=== PATIENT | male | born 1975 | race African-American/Black ===

== ENCOUNTER 2017-06-25 00:53 | Emergency (ER) | payer BC ==
[2017-06-25] MEDS ORDERED: ONDANSETRON 4 MG (ODT) TAB ONE (01:49)
[2017-06-25 03:17] LABS: Absolute Lymphocytes (CBC) 3.6 K/uL (0.7-4.9); Absolute Monocytes 0.9 K/uL (0.1-1.3); Absolute Neutrophil 5.5 K/uL (1.8-8.0); Basophils % 0.4 % (0-1.3); Eosinophils % 9.2 % (0-4.4); Hematocrit 38.9 % (39.6-49.0); Lymphocytes % 32.5 % (15.3-44.8); MCH 29.2 pg (27.0-35.0); MPV 8.2 fL (7.6-11.3); RBC Red Blood Cell Count 4.47 M/uL (4.33-5.43)
[2017-06-25] MEDS ORDERED: MAGNE/ALUM HYDROXD 30 ML UCUP ONE (03:17)
[2017-06-25] MEDS ORDERED: HYDROCODONE/APAP 7.5/325 MG TAB ONE (03:18)
[2017-06-25] MEDS ORDERED: FAMOTIDINE 20 MG TAB ONE (03:18)
[2017-06-25] MEDS ORDERED: LIDOCAINE VISCOUS 2% SOLN 15 ML UDC ONE (03:18)
[2017-06-25 03:20] LABS: Bicarbonate 30 mEq/L (21-31); Glucose Level 86 mg/dL (65-120); Lipase 16 U/L (22-51); Potassium 3.3 mEq/L (3.6-5.0); Sodium Level 135 mEq/L (135-145)
[2017-06-25] MEDS ORDERED: FAMOTIDINE 20 MG/2 ML VIAL IV ONE (03:21)
[2017-06-25 03:26] LABS: ALT/SGPT 25 IU/L (10-60); AST/SGOT 21 IU/L (10-42); Albumin 3.9 g/dL (3.2-5.5); Alkaline Phosphatase 85 IU/L (42-121); Amylase Level 79 U/L (28-100); BUN Blood Urea Nitrogen 13 mg/dL (6-20); Bilirubin Direct 0.1 mg/dL (0-0.2); Bilirubin Total 0.8 mg/dL (0.3-1.2); Glomerular Filtration Rate > 90 mL/min (=/>90); Protein, Total 7.4 g/dL (6.0-8.3)
--- NOTE | 2017-06-25 03:59 | ER ---
Nurse's Notes [facility] Name: Terry Santoyo Age: 42 yrs Sex: Male : 1975 Arrival Date: 06/25/2017 Time: 00:57 Bed 18 Private MD: Diagnosis: Calculus of gallbladder and bile duct without cholecystitis Presentation: 06/25 01:20 Presenting complaint: Patient states: I BEEN HAVING THESE PAINS IN MY STOMACH SINCE I bp ATE THESE BURRITOS THE OTHER DAY AND IT'S WORSE WHEN I EAT SOMETHING. Transition of care: patient was not received from another setting of care. Onset of symptoms is unknown. Care prior to arrival: None. 01:20 Method Of Arrival: Ambulatory bp 01:20 Acuity: ASH 3 bp Triage Assessment: 01:22 General: Appears in no apparent distress. comfortable, Behavior is calm, cooperative, bp appropriate for age. Pain: Complains of pain in abdomen. EENT: No deficits noted. Neuro: Level of Consciousness is awake, alert, obeys commands, Oriented to person, place, time, situation, Appropriate for age. Cardiovascular: No deficits noted. Respiratory: Airway is patent Respiratory effort is even, unlabored, Respiratory pattern is regular, symmetrical. GI: Abdomen is non-distended, Abd is soft X 4 quads. : No deficits noted. Derm: No deficits noted. Musculoskeletal: Circulation, motion, and sensation intact. Range of motion: intact in all extremities. 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 - Social history:: Smoking status: Patient/guardian denies using tobacco. Screenin:24 Abuse screen: Denies threats or abuse. Denies injuries from another. Nutritional bp screening: No deficits noted. Tuberculosis screening: No symptoms or risk factors identified. Fall Risk None identified. Assessment: 01:24 Reassessment: SEE TRIAGE NOTE. GI: Bowel sounds present X 4 quads. bp 02:26 Reassessment: patient with eyes closed breathing regular, family at bedside. No new cr4 complaints or concerns expressed. 03:11 Reassessment: No changes from previously documented assessment. Patient and/or family cr4 updated on plan of care and expected duration. Pain level reassessed. Patient is alert, oriented x 3, equal unlabored respirations, skin warm/dry/pink. Vital Signs: 01:22 BP 124 / 89; Pulse 60; Resp 16; Temp 98.1; Pulse Ox 98% on R/A; Weight 104.33 kg; bp Height 6 ft. 1 in. (185.42 cm); 02:01 BP 125 / 89; Pulse 53; Resp 18; Pulse Ox 95% on R/A; tl2 03:17 BP 134 / 96; Pulse 56; Resp 18; Pulse Ox 99% ; Pain 6/10; cr4 04:12 BP 130 / 91; Pulse 66; Resp 18; Temp 97.7; Pulse Ox 99% ; Pain 4/10; cr4 01:22 Body Mass Index 30.34 (104.33 kg, 185.42 cm) bp ED Course: 00:57 Patient arrived in ED. al2 01:15 Brittney Flores [facility]C [facility]. snw 01:15 Jay Khanna MD is Attending Physician. snw 01:20 Alvarez Mckeon, KINSEY is Primary Nurse. bp 01:21 Triage completed. bp 01:22 Arm band placed on. bp 01:24 Patient has correct armband on for positive identification. Bed in low position. Call bp light in reach. Side rails up X2. 01:47 CT Stone Protocol In Process Unspecified. EDMS 02:27 Awaiting: CT results. cr4 02:43 ED physician to see patient. cr4 02:47 Inserted saline lock: 20 gauge in right antecubital area, using aseptic technique. cr4 04:09 ED physician to see patient. cr4 04:13 No provider procedures requiring assistance completed. IV discontinued, intact, cr4 bleeding controlled, No redness/swelling at site. Administered Medications: 01:31 Drug: Zofran 4 mg Route: PO; bp 02:40 Follow up: Response: No adverse reaction; Nausea is decreased cr4 03:03 Not Given (Do not have ): GI Cocktail with - (Maalox Suspension 30 ml, tl2 Lidocaine Liquid 2 % 20 ml, Phenobarbital-Belladonna 10 ml) PO once 03:11 Drug: [place] (7.5 mg-325 mg) 1 tabs Route: PO; cr4 04:11 Follow up: Response: No adverse reaction; Pain is decreased cr4 03:11 Drug: GI Cocktail without - (Maalox Suspension 30 ml, Lidocaine Liquid 2 % 15 cr4 ml) Route: PO; 04:12 Follow up: Response: No adverse reaction cr4 03:12 Drug: Pepcid 20 mg Route: IVP; Site: right antecubital; cr4 04:11 Follow up: Response: No adverse reaction cr4 Outcome: 03:59 Discharge ordered by . [email or web address] 04:15 Discharge instructions given to patient, significant other, Instructed on discharge cr4 instructions, follow up and referral plans. no drinking with medication, medication usage, Demonstrated understanding of instructions, follow-up care, medications, Prescriptions given X 1. 04:15 Discharged to home ambulatory, with significant other. cr4 04:15 Condition: stable 04:16 Patient left the ED. cr4 Signatures: Dispatcher [employer] EDMS Brittney Flores, PSYCHIATRIC AIDE-C PSYCHIATRIC AIDE-Csnw Mildred Carmona RN RN cr4 Kateryna Soliman RN RN tl2 Alvarez Mckeon, RN Wendy De La O2 Jay Khanna MD MD ma2 Corrections: (The following items were deleted from the chart) 04:16 04:09 Discharged to home ambulatory, with significant other, cr4 cr4 04:16 04:09 Condition: stable cr4 cr4
--- NOTE | 2017-06-25 04:00 | EDPHYS ---
Physician Documentation [facility] Name: Terry Santoyo Age: 42 yrs Sex: Male : 1975 Arrival Date: 06/25/2017 Time: 00:57 Bed 18 Private MD: ED Physician Jay Khanna HPI: 06/25 01:27 This 42 yrs old Black Male presents to ER via Ambulatory with complaints of Abdominal snw Pain, Back Pain. 01:27 The patient presents with abdominal pain that is diffuse. Onset: The symptoms/episode snw began/occurred suddenly, 4 day(s) ago, and became persistent. The symptoms radiate to left back. Associated signs and symptoms: Pertinent positives: nausea, Pertinent negatives: fever, vomiting. The symptoms are described as achy. Modifying factors: The symptoms are alleviated by nothing, the symptoms are aggravated by food. Severity of pain: At its worst the pain was moderate. It is unknown whether or not the patient has had similar symptoms in the past. The patient has not recently seen a physician, the patient's primary care provider is Dr. Dr. Macario. 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 - Social history:: Smoking status: Patient/guardian denies using tobacco. ROS: 01:27 Constitutional: Negative for fever, chills, and weight loss, Eyes: Negative for injury, snw pain, redness, and discharge, ENT: Negative for injury, pain, and discharge, Neck: Negative for injury, pain, and swelling, Cardiovascular: Negative for chest pain, palpitations, and edema, Respiratory: Negative for shortness of breath, cough, wheezing, and pleuritic chest pain, Back: Negative for injury and pain, : Negative for injury, bleeding, discharge, and swelling, MS/Extremity: Negative for injury and deformity, Skin: Negative for injury, rash, and discoloration, Neuro: Negative for headache, weakness, numbness, tingling, and seizure. 01:27 Abdomen/GI: Positive for abdominal pain, nausea, Negative for vomiting, diarrhea, fever. Exam: 01:26 Constitutional: This is a well developed, well nourished patient who is awake, alert, snw and in no acute distress. Head/Face: Normocephalic, atraumatic. Eyes: Pupils equal round and reactive to light, extra-ocular motions intact. Lids and lashes normal. Conjunctiva and sclera are non-icteric and not injected. Cornea within normal limits. Periorbital areas with no swelling, redness, or edema. ENT: Nares patent. No nasal discharge, no septal abnormalities noted. Tympanic membranes are normal and external auditory canals are clear. Oropharynx with no redness, swelling, or masses, exudates, or evidence of obstruction, uvula midline. Mucous membranes moist. Neck: Trachea midline, no thyromegaly or masses palpated, and no cervical lymphadenopathy. Supple, full range of motion without nuchal rigidity, or vertebral point tenderness. No Meningismus. Chest/axilla: Normal chest wall appearance and motion. Nontender with no deformity. No lesions are appreciated. Cardiovascular: Regular rate and rhythm with a normal S1 and S2. No gallops, murmurs, or rubs. Normal PMI, no JVD. No pulse deficits. Respiratory: Lungs have equal breath sounds bilaterally, clear to auscultation and percussion. No rales, rhonchi or wheezes noted. No increased work of breathing, no retractions or nasal flaring. Skin: Warm, dry with normal turgor. Normal color with no rashes, no lesions, and no evidence of cellulitis. MS/ Extremity: Pulses equal, no cyanosis. Neurovascular intact. Full, normal range of motion. Neuro: Awake and alert, GCS 15, oriented to person, place, time, and situation. Cranial nerves II-XII grossly intact. Motor strength 5/5 in all extremities. Sensory grossly intact. Cerebellar exam normal. Normal gait. 01:26 Abdomen/GI: Inspection: abdomen appears normal, scar(s), are noted in the midline abd, s/p splenectomy in ' 2nd to football injury, Bowel sounds: hyperactive, Palpation: nontender. 01:26 Back: pain, that is mild, ROM is normal, CVA tenderness, is absent. Vital Signs: 01:22 BP 124 / 89; Pulse 60; Resp 16; Temp 98.1; Pulse Ox 98% on R/A; Weight 104.33 kg; bp Height 6 ft. 1 in. (185.42 cm); 02:01 BP 125 / 89; Pulse 53; Resp 18; Pulse Ox 95% on R/A; tl2 03:17 BP 134 / 96; Pulse 56; Resp 18; Pulse Ox 99% ; Pain 6/10; cr4 04:12 BP 130 / 91; Pulse 66; Resp 18; Temp 97.7; Pulse Ox 99% ; Pain 4/10; cr4 01:22 Body Mass Index 30.34 (104.33 kg, 185.42 cm) bp MDM: 01:15 Patient medically screened. snw 01:41 Data reviewed: vital signs, nurses notes. Data interpreted: Pulse oximetry: on room air snw is 98 %. Interpretation: normal. Counseling: I had a detailed discussion with the patient and/or guardian regarding: the historical points, exam findings, and any diagnostic results supporting the discharge/admit diagnosis. 03:56 Medical screen evaluation completed. EMTALA emergency medical condition absent. ED ma2 course: CT scan consistent with cholelithiasis no infection, pain resolved lab non critical will f/u with pcp and gen surg next week . 04 01:41 Order name: Urine Dipstick--Ancillary (enter results); Complete Time: 15:56 em1 06/25 02:43 Order name: Amylase, Serum; Complete Time: 03:56 ma2 06/25 02:43 Order name: Basic Metabolic Panel; Complete Time: 03:56 ma2 06/25 02:43 Order name: CBC with Diff; Complete Time: 03:56 ma2 06/25 02:43 Order name: Hepatic Function; Complete Time: 03:56 ma2 06/25 01:05 Order name: Urine Dipstick-Ancillary (obtain specimen); Complete Time: 01:27 snw 06/25 01:26 Order name: CT Stone Protocol; Complete Time: 15:56 snw 06/25 02:43 Order name: Lipase; Complete Time: 03:56 ma2 06/25 02:43 Order name: IV Saline Lock; Complete Time: 02:57 ma2 06/25 02:43 Order name: Labs collected and sent; Complete Time: 02:57 ma2 Administered Medications: 01:31 Drug: Zofran 4 mg Route: PO; bp 02:40 Follow up: Response: No adverse reaction; Nausea is decreased cr4 03:03 Not Given (Do not have ): GI Cocktail with - (Maalox Suspension 30 ml, tl2 Lidocaine Liquid 2 % 20 ml, Phenobarbital-Belladonna 10 ml) PO once 03:11 Drug: [place] (7.5 mg-325 mg) 1 tabs Route: PO; cr4 04:11 Follow up: Response: No adverse reaction; Pain is decreased cr4 03:11 Drug: GI Cocktail without - (Maalox Suspension 30 ml, Lidocaine Liquid 2 % 15 cr4 ml) Route: PO; 04:12 Follow up: Response: No adverse reaction cr4 03:12 Drug: Pepcid 20 mg Route: IVP; Site: right antecubital; cr4 04:11 Follow up: Response: No adverse reaction cr4 Disposition: 03:59 Co-signature as Attending Physician, Jay Khanna MD. Co-signature as Attending [facility] Physician, Jay Khanna MD. Disposition: 06/25/17 03:59 Discharged to Home. Impression: Calculus of gallbladder and bile duct without cholecystitis. - Condition is Stable. - Discharge Instructions: Cholelithiasis, Cholelithiasis, [id number]. - Prescriptions for Tylenol- Codeine #3 300-30 mg Oral Tablet - take 2 tablet by ORAL route every 6 hours As needed; 30 tablet. - Medication Reconciliation Form, Thank You Letter, Antibiotic Education, Prescription Opioid Use form. - Follow up: Private Physician; When: 48 Hours; Reason: Continuance of care. - Problem is new. - Symptoms have improved. Signatures: Dispatcher [employer] EDMA Brittney lFores, RESEARCH ANIMAL ATTENDANT-C RESEARCH ANIMAL ATTENDANT-Csnw Mildred Carmona, RN RN cr4 Kateryna Soliman, RN RN tl2 Alvarez Mckeon RN RN Jay Mitchell MD MD [facility]
[2017-06-25 04:28] LABS: Urine Blood NEGATIVE (NEG); Urine Glucose NEGATIVE (NEG); Urine Protein NEGATIVE (NEG); Urine pH 6.5 (5.0-7.0)
--- NOTE | 2017-06-25 08:13 | RAD REPORT ---
EXAM DESCRIPTION: CT - Stone Protocol - 06/25/2017 6:36 am CLINICAL HISTORY: Abdominal pain. Lower abdominal pain. Urinary frequency COMPARISON: June 2016 TECHNIQUE: Computed axial tomography of the abdomen pelvis was obtained without oral or IV contrast. Lack of IV and oral contrast limits evaluation of solid organs, bowel, and vessels. Coronal reformat ondina images were obtained and reviewed. A preliminary report was generated by [employer] and reviewed prior to this dictation All CT scans are performed using dose optimization technique as appropriate and may include automated exposure control or mA/KV adjustment according to patient size. FINDINGS: A renal calculus is not seen. An ureteral calculus is not noted. A bladder calculus is not present. The liver, spleen, pancreas and adrenals appear grossly normal Multiple gallstones are present. The gallbladder wall is not thickened. There is no evidence of diverticulitis. The appendix appears normal IMPRESSION: Negative for a genitourinary calculus Cholelithiasis without evidence of cholecystitis
== END 2017-06-25 04:16 | disposition home or self-care (01) ==
LOC: ER 00:53
DX: K80.70 Calculus of gallbladder and bile duct without cholecystitis without obstruction (principal)
CPT/HCPCS: 36415; 74176; 76377; 80048; 80076; 81003; 82150; 83690; 85025; 96374; 99284

== ENCOUNTER 2019-03-02 01:47 | Emergency (ER) | payer BC ==
--- OUTSIDE RECORDS SUMMARY | 2019-03-02 01:50 | XMS REPORT ---
:1975 [facility] [address] [place] [address] Dr. Mueller [address] [place] [id number] Care Team Providers Name Role Phone Unavailable Unavailable Unavailable Problems This patient has no known problems. Allergies, Adverse Reactions, Alerts This patient has no known allergies or adverse reactions. Medications This patient has no known medications.
[2019-03-02] MEDS ORDERED: NA CHLORIDE 0.9% 1,000 ML ONE (02:32)
[2019-03-02] MEDS ORDERED: METOCLOPRAMIDE 10 MG/2mL INJ ONE (02:32)
--- NOTE | 2019-03-02 03:12 | EDPHYS ---
Physician Documentation [facility] Name: Terry Santoyo Age: 44 yrs Sex: Male : 1975 Arrival Date: 03/02/2019 Time: 01:51 Bed 15 Private MD: ED Physician Martín Anton HPI: 03/02 02:09 This 44 yrs old Black Male presents to ER via Unassigned with complaints of Headache. rn 02:09 The patient complains of pain to the forehead and right side of head. The patient rn describes the headache as aching. Onset: The symptoms/episode began/occurred 1 week(s) ago. Associated signs and symptoms: Pertinent negatives: altered mental status, dizziness, fever, neck stiffness, rash, vision changes, vision loss, vomiting, weakness, vertigo. Severity of symptoms: At its worst the pain was moderate, in the emergency department the pain has improved. The symptoms are alleviated by nothing. the symptoms are aggravated by nothing. The patient has not experienced similar symptoms in the past. Reports about 1 week of headache, right sided, radiates to right neck, no fever/injury/focal neuro complaint/vision changes. Reports took tylenol and only a little better. No famhx of aneurysm or brain tumor. No chest pain/sob/abd pain/sore throat/recent illness. . Historical: - Allergies: 01:56 No Known Allergies; jb4 - Home Meds: 01:56 Ibuprofen Oral [Active]; Naproxen Oral [Active]; jb4 - PMHx: 01:56 neck injury; jb4 - PSHx: 01:56 splenectomy; jb4 - Immunization history:: Adult Immunizations up to date, Flu vaccine is not up to date. - Social history:: Smoking status: Patient/guardian denies using tobacco, Patient/guardian denies using alcohol, street drugs. - Family history:: not pertinent. - Ebola Screening: : No symptoms or risks identified at this time. - Hospitalizations: : No recent hospitalization is reported. ROS: 02:09 Constitutional: Negative for fever, chills, and weight loss, Eyes: Negative for injury, rn pain, redness, and discharge, Neck: Negative for injury, and swelling, Cardiovascular: Negative for chest pain, palpitations, and edema, Respiratory: Negative for shortness of breath, cough, wheezing, and pleuritic chest pain, Abdomen/GI: Negative for abdominal pain, nausea, vomiting, diarrhea, and constipation, MS/Extremity: Negative for injury and deformity, Skin: Negative for injury, rash, and discoloration, Neuro: Negative for weakness, numbness, tingling, and seizure. Exam: 02:09 Constitutional: This is a well developed, well nourished patient who is awake, alert, rn and in no acute distress. Ambulatory to room without difficulty or assistance Head/Face: Normocephalic, atraumatic. Eyes: Pupils equal round and reactive to light, extra-ocular motions intact. Lids and lashes normal. Conjunctiva and sclera are non-icteric and not injected. Cornea within normal limits. Periorbital areas with no swelling, redness, or edema. ENT: MMM Neck: Trachea midline, no thyromegaly or masses palpated, and no cervical lymphadenopathy. Supple, full range of motion without nuchal rigidity, or vertebral point tenderness. No Meningismus. Cardiovascular: Regular rate and rhythm. No pulse deficits. Respiratory: No increased work of breathing, no retractions or nasal flaring. Skin: Warm, dry with normal turgor. Normal color with no rashes, no lesions, and no evidence of cellulitis. MS/ Extremity: Pulses equal, no cyanosis. Neurovascular intact. Full, normal range of motion. Equal circumference. Neuro: Awake and alert, GCS 15, oriented to person, place, time, and situation. Cranial nerves II-XII grossly intact. Motor strength 5/5 in all extremities. Sensory grossly intact. Cerebellar exam normal. Normal gait. Vital Signs: 01:56 BP 131 / 89; Pulse 60; Resp 16; Temp 97.7(O); Pulse Ox 100% on R/A; Weight 107.95 kg jb4 (R); Height 6 ft. 1 in. (185.42 cm) (R); Pain 7/10; 02:45 BP 118 / 78; Pulse 52; Resp 16; Pulse Ox 98% on R/A; jb4 03:30 BP 117 / 78; Pulse 60; Resp 16; Pulse Ox 98% on R/A; jb4 01:56 Body Mass Index 31.40 (107.95 kg, 185.42 cm) jb4 [place] Coma Score: 03:09 Eye Response: spontaneous(4). Verbal Response: oriented(5). Motor Response: obeys rn commands(6). Total: 15. MDM: 01:57 Patient medically screened. rn 03:09 Differential diagnosis: cluster headache, intracerebral hemorrhage, migraine, tension rn headache, vasomotor headache. Data reviewed: vital signs, nurses notes, radiologic studies, CT scan, and as a result, I will discharge patient. Counseling: I had a detailed discussion with the patient and/or guardian regarding: the historical points, exam findings, and any diagnostic results supporting the discharge/admit diagnosis, radiology results, the need for outpatient follow up, to return to the emergency department if symptoms worsen or persist or if there are any questions or concerns that arise at home. Response to treatment: the patient's symptoms have mildly improved after treatment, and as a result, I will discharge patient. Special discussion: I discussed with the patient/guardian in detail that at this point there is no indication for admission to the hospital. It is understood, however, that if the symptoms persist or worsen the patient needs to return immediately for re-evaluation. Based on the history and exam findings, there is no indication for further emergent testing or inpatient evaluation. I discussed with the patient/guardian the need to see the primary care provider for further evaluation of the symptoms. 03:10 ED course: No acute findings on ct head, will dc home with return precautions and f/u.. rn 03/02 02:09 Order name: CT Head Brain wo Cont rn 03/02 02:09 Order name: IV Start; Complete Time: 02:44 rn Administered Medications: 02:30 Drug: Reglan 10 mg Route: IVP; Site: right antecubital; jb4 03:00 Follow up: Response: No adverse reaction; Pain is decreased jb4 02:30 Drug: NS 0.9% 1000 ml Route: IV; Rate: 1000 ml; Site: right antecubital; jb4 03:46 Follow up: Response: No adverse reaction; IV Status: Completed infusion; IV Intake: jb4 1000ml 03:33 Drug: TORadol - Ketorolac 15 mg Route: IVP; Site: right antecubital; jb4 03:47 Follow up: Response: No adverse reaction; Pain is decreased jb4 Disposition: 03/02/19 03:11 Discharged to Home. Impression: Headache. - Condition is Stable. - Discharge Instructions: General Headache Without Cause, Tension Headache, Adult. - Prescriptions for Fiorinal 50- 325-40 mg Oral Capsule - take 1 capsule by ORAL route every 4 hours As needed - not to exceed 6 capsules per day; 15 capsule. - Medication Reconciliation Form, Thank You Letter, Antibiotic Education, Prescription Opioid Use form. - Follow up: Private Physician; When: As needed; Reason: Recheck today's complaints, Re-evaluation by your physician. - Problem is new. - Symptoms have improved. Signatures: Dispatcher [employer] EDMI Martín Anton MD MD rn Bryson, James, RN RN jb4 Corrections: (The following items were deleted from the chart) 03:50 03:11 03/02/2019 03:11 Discharged to Home. Impression: Headache. Condition is Stable. jb4 Forms are Medication Reconciliation Form, Thank You Letter, Antibiotic Education, Prescription Opioid Use. Follow up: Private Physician; When: As needed; Reason: Recheck today's complaints, Re-evaluation by your physician. Problem is new. Symptoms have improved. rn
--- NOTE | 2019-03-02 03:12 | ER ---
Nurse's Notes [facility] Name: Terry Santoyo Age: 44 yrs Sex: Male : 1975 Arrival Date: 03/02/2019 Time: 01:51 Bed 15 Private MD: Diagnosis: Headache Presentation: 03/02 01:56 Presenting complaint: Patient states: I am having neck pain and a headache on my right jb4 side that has been bothering me for a week. 01:56 Transition of care: patient was not received from another setting of care. Onset of jb4 symptoms was February 23, 2019. Risk Assessment: Do you want to hurt yourself or someone else? Patient reports no desire to harm self or others. Initial Sepsis Screen: Does the patient meet any 2 criteria? No. Patient's initial sepsis screen is negative. Does the patient have a suspected source of infection? No. Patient's initial sepsis screen is negative. Care prior to arrival: None. 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 - Social history:: Smoking status: Patient/guardian denies using tobacco, Patient/guardian denies using alcohol, street drugs. - Family history:: not pertinent. - Ebola Screening: : No symptoms or risks identified at this time. - Hospitalizations: : No recent hospitalization is reported. Screenin:56 Abuse screen: Denies threats or abuse. Nutritional screening: No deficits noted. jb4 Tuberculosis screening: No symptoms or risk factors identified. Fall Risk None identified. Assessment: 01:56 General: Appears in no apparent distress. uncomfortable, Behavior is calm, cooperative, jb4 appropriate for age. Pain: Complains of pain in right side of head and neck Pain does not radiate. Pain currently is 7 out of 10 on a pain scale. Neuro: Level of Consciousness is awake, alert, obeys commands, Oriented to person, place, time, situation, Moves all extremities. Full function Gait is steady, Speech is normal, Facial symmetry appears normal. Cardiovascular: Patient's skin is warm and dry. Respiratory: Airway is patent Respiratory effort is even, unlabored. GI: No signs and/or symptoms were reported involving the gastrointestinal system. : No signs and/or symptoms were reported regarding the genitourinary system. EENT: No signs and/or symptoms were reported regarding the EENT system. Derm: Skin is intact, Skin is dry, Skin is normal, Skin temperature is warm. Musculoskeletal: Circulation, motion, and sensation intact. Range of motion: intact in all extremities. 02:54 Reassessment: Patient appears in no apparent distress at this time. Patient and/or jb4 family updated on plan of care and expected duration. Pain level reassessed. Patient is alert, oriented x 3, equal unlabored respirations, skin warm/dry/pink. Patient states feeling better. 03:30 Reassessment: Patient appears in no apparent distress at this time. Patient and/or jb4 family updated on plan of care and expected duration. Pain level reassessed. Patient is alert, oriented x 3, equal unlabored respirations, skin warm/dry/pink. d/c pending completion of IV fluids. Vital Signs: 01:56 BP 131 / 89; Pulse 60; Resp 16; Temp 97.7(O); Pulse Ox 100% on R/A; Weight 107.95 kg jb4 (R); Height 6 ft. 1 in. (185.42 cm) (R); Pain 7/10; 02:45 BP 118 / 78; Pulse 52; Resp 16; Pulse Ox 98% on R/A; jb4 03:30 BP 117 / 78; Pulse 60; Resp 16; Pulse Ox 98% on R/A; jb4 01:56 Body Mass Index 31.40 (107.95 kg, 185.42 cm) jb4 [place] Coma Score: 03:09 Eye Response: spontaneous(4). Verbal Response: oriented(5). Motor Response: obeys rn commands(6). Total: 15. ED Course: 01:51 Patient arrived in ED. jg7 01:56 Arm band placed on right wrist. jb4 01:56 Patient has correct armband on for positive identification. Bed in low position. Call jb4 light in reach. Side rails up X 1. Pulse ox on. NIBP on. 01:57 Da Adam, RN is Primary Nurse. jb4 01:57 Martín Anton MD is Attending Physician. rn 02:11 Triage completed. jb4 02:20 Inserted saline lock: 20 gauge in right antecubital area, using aseptic technique. jb4 02:35 CT Head Brain wo Cont In Process Unspecified. EDMS 03:49 No provider procedures requiring assistance completed. IV discontinued, intact, jb4 bleeding controlled, No redness/swelling at site. Pressure dressing applied. Administered Medications: 02:30 Drug: Reglan 10 mg Route: IVP; Site: right antecubital; jb4 03:00 Follow up: Response: No adverse reaction; Pain is decreased jb4 02:30 Drug: NS 0.9% 1000 ml Route: IV; Rate: 1000 ml; Site: right antecubital; jb4 03:46 Follow up: Response: No adverse reaction; IV Status: Completed infusion; IV Intake: jb4 1000ml 03:33 Drug: TORadol - Ketorolac 15 mg Route: IVP; Site: right antecubital; jb4 03:47 Follow up: Response: No adverse reaction; Pain is decreased jb4 Intake: 03:46 IV: 1000ml; Total: 1000ml. jb4 Outcome: 03:11 Discharge ordered by . rn 03:49 Discharged to home ambulatory. jb4 03:49 Condition: stable 03:49 Discharge instructions given to patient, Instructed on discharge instructions, follow up and referral plans. medication usage, Demonstrated understanding of instructions, follow-up care, medications, Prescriptions given X 1. 03:50 Patient left the ED. jb4 Signatures: Dispatcher [employer] EDGA Martín Anton MD MD rn Bryson, James, RN RN jb4 Mary Dietrich jg7 Corrections: (The following items were deleted from the chart) 03:50 03:30 No provider procedures requiring assistance completed. jb4 jb4 03:50 03:30 IV discontinued, intact, bleeding controlled, No redness/swelling at site. jb4 Pressure dressing applied, jb4
[2019-03-02] MEDS ORDERED: KETOROLAC 30 MG/ML INJ ONE (03:30)
[2019-03-02 03:55] VITALS: TEMP 97.7
[2019-03-02 03:56] VITALS: O2SAT 98
[2019-03-02 03:58] VITALS: BP 117/78
--- NOTE | 2019-03-04 13:08 | RAD REPORT ---
EXAM DESCRIPTION: CT head without IV contrast CLINICAL HISTORY: 44-year-old male with headache and right-sided neck pain x1 week TECHNIQUE: Multiple axial CT images of the brain were performed followed by sagittal and coronal rec onstructed images. The CT study is performed according to ALARA (as low as reasonably achievable) or ALARA/IMAGE GENTLY, with automatic adjustment of mA and/or kV according to patient size. Performed on: 03/02/2019 at 2:26 AM COMPARISON: Head CT performed on 01/17/2016. The report from the prior study was not available for neena elizondo. FINDINGS: There is no evidence of mass, acute mass effect or midline shift. There are no acute extra -axial fluid collections. There is no evidence of acute intracranial hemorrhage. The cerebral sulci and ventricles are normal in size and configuration. There are no focal abnormal areas of increased or decreased attenuation. Again demonstrated is marked opacification of the right maxillary sinus with extension into the right nasal cavity. Findings are stable when compared to the prior study. An antrochoanal polyp or inverti ng papilloma are potential etiologies. The mastoid air cells are clear. The orbital contents are grossly unremarkable. No acute osseous abnormalities are identified. No focal soft tissue abnormalities are identified. IMPRESSION: 1. There is no evidence of acute intracranial pathology. 2. Chronic right maxillary sinus mucosal thickening with extension into the right nasal cavity, simil ar when compared to the prior study. Findings could reflect an antrochoanal polyp or inverting papill ca. Electronically signed by: Mary Lou Henry DO 03/02/2019 3:05 AM ENGINEERING GROUP MANAGER Due to temporary technical issues with the PACS/Fluency reporting system, reports are being signed by the in house radiologist as a courtesy to ensure prompt reporting. The interpreting radiologist is f ully responsible for the content of the report.
== END 2019-03-02 03:50 | disposition home or self-care (01) ==
LOC: ER 01:47
DX: R51 Headache (principal)
CPT/HCPCS: 96361; 70450; 96375; 96374; 99284; J2765; J7030